=== PATIENT | male | born 1935 | race Caucasian/White ===

== ENCOUNTER 2021-06-04 08:11 | Outpatient (CLI) | payer MEDICARE, BC | END 2021-06-04 08:12 | disposition home or self-care (01) | LOC: CSHWCC 08:11 | PROVIDERS: ATTEND Nurse Practitioner Family | DX: I87.331 Chronic venous hypertension (idiopathic) with ulcer and inflammation of right lower extremity (principal); I87.2 Venous insufficiency (chronic) (peripheral); L97.312 Non-pressure chronic ulcer of right ankle with fat layer exposed; I89.0 Lymphedema, not elsewhere classified; R60.0 Localized edema; I63.9 Cerebral infarction, unspecified; G20 Parkinson's disease; E78.2 Mixed hyperlipidemia; I48.91 Unspecified atrial fibrillation; Z74.01 Bed confinement status | CPT/HCPCS: 99213; G0463 ==

== ENCOUNTER 2021-06-16 09:58 | Outpatient (CLI) | payer MEDICARE, BC | END 2021-06-16 09:59 | disposition home or self-care (01) | LOC: CSHWCC 09:58 | PROVIDERS: ATTEND Nurse Practitioner Family | DX: I87.331 Chronic venous hypertension (idiopathic) with ulcer and inflammation of right lower extremity (principal); I87.2 Venous insufficiency (chronic) (peripheral); L97.312 Non-pressure chronic ulcer of right ankle with fat layer exposed; I89.0 Lymphedema, not elsewhere classified; R60.0 Localized edema; E78.2 Mixed hyperlipidemia; G20 Parkinson's disease; I48.91 Unspecified atrial fibrillation; I63.9 Cerebral infarction, unspecified; R74.01 Elevation of levels of liver transaminase levels; Z74.01 Bed confinement status | CPT/HCPCS: 99213; G0463 ==

== ENCOUNTER 2021-08-25 09:33 | Outpatient (CLI) | payer MEDICARE, BC | END 2021-08-25 09:34 | disposition home or self-care (01) | LOC: CSHWCC 09:33 | PROVIDERS: ATTEND Nurse Practitioner Family | DX: I87.331 Chronic venous hypertension (idiopathic) with ulcer and inflammation of right lower extremity (principal); L97.312 Non-pressure chronic ulcer of right ankle with fat layer exposed; I89.0 Lymphedema, not elsewhere classified; R60.0 Localized edema; G20 Parkinson's disease; I63.9 Cerebral infarction, unspecified; I48.91 Unspecified atrial fibrillation; E78.2 Mixed hyperlipidemia; Z74.01 Bed confinement status | CPT/HCPCS: 29581; 99213; G0463 ==

== ENCOUNTER 2021-09-15 11:07 | Outpatient (CLI) | payer MEDICARE, BC | END 2021-09-15 11:08 | disposition home or self-care (01) | LOC: CSHWCC 11:07 | PROVIDERS: ATTEND Nurse Practitioner Family | DX: I87.331 Chronic venous hypertension (idiopathic) with ulcer and inflammation of right lower extremity (principal); L97.312 Non-pressure chronic ulcer of right ankle with fat layer exposed; R60.0 Localized edema; E78.2 Mixed hyperlipidemia; G20 Parkinson's disease; I48.91 Unspecified atrial fibrillation; I63.9 Cerebral infarction, unspecified; I87.2 Venous insufficiency (chronic) (peripheral); I89.0 Lymphedema, not elsewhere classified; Z74.01 Bed confinement status | CPT/HCPCS: 29581; 99213; G0463 ==

== ENCOUNTER 2021-09-27 09:09 | Outpatient (CLI) | payer MEDICARE, BC | END 2021-09-27 09:10 | disposition home or self-care (01) | LOC: CSHWCC 09:09 | PROVIDERS: ATTEND Nurse Practitioner Family | DX: I87.331 Chronic venous hypertension (idiopathic) with ulcer and inflammation of right lower extremity (principal); I87.2 Venous insufficiency (chronic) (peripheral); L97.312 Non-pressure chronic ulcer of right ankle with fat layer exposed; I89.0 Lymphedema, not elsewhere classified; R60.0 Localized edema; I63.9 Cerebral infarction, unspecified; G20 Parkinson's disease; I48.91 Unspecified atrial fibrillation; E78.2 Mixed hyperlipidemia; Z74.01 Bed confinement status | CPT/HCPCS: 29581; 97607 ==

== ENCOUNTER 2021-10-04 13:25 | Outpatient (CLI) | payer MEDICARE, BC | END 2021-10-04 13:26 | disposition home or self-care (01) | LOC: CSHWCC 13:25 | PROVIDERS: ATTEND Nurse Practitioner Family | DX: I87.331 Chronic venous hypertension (idiopathic) with ulcer and inflammation of right lower extremity (principal); I87.2 Venous insufficiency (chronic) (peripheral); L97.312 Non-pressure chronic ulcer of right ankle with fat layer exposed; I89.0 Lymphedema, not elsewhere classified; R60.0 Localized edema; G20 Parkinson's disease; I48.91 Unspecified atrial fibrillation; I63.9 Cerebral infarction, unspecified; E78.2 Mixed hyperlipidemia; Z74.01 Bed confinement status | CPT/HCPCS: 97607; 99213; G0463 ==

== ENCOUNTER 2021-10-12 14:41 | Outpatient (CLI) | payer MEDICARE, BC | END 2021-10-12 14:42 | disposition home or self-care (01) | LOC: CSHWCC 14:41 | PROVIDERS: ATTEND Nurse Practitioner Family | DX: I87.331 Chronic venous hypertension (idiopathic) with ulcer and inflammation of right lower extremity (principal); E78.2 Mixed hyperlipidemia; G20 Parkinson's disease; I10 Essential (primary) hypertension; I48.91 Unspecified atrial fibrillation; I63.9 Cerebral infarction, unspecified; I87.2 Venous insufficiency (chronic) (peripheral); L97.312 Non-pressure chronic ulcer of right ankle with fat layer exposed; I89.0 Lymphedema, not elsewhere classified; R60.0 Localized edema; Z74.01 Bed confinement status | CPT/HCPCS: 29581; 97139; G0463; 99213 ==

== ENCOUNTER 2021-10-26 14:29 | Outpatient (CLI) | payer MEDICARE, BC | END 2021-10-26 14:30 | disposition home or self-care (01) | LOC: CSHWCC 14:29 | PROVIDERS: ATTEND Nurse Practitioner Family | DX: I87.331 Chronic venous hypertension (idiopathic) with ulcer and inflammation of right lower extremity (principal); I87.2 Venous insufficiency (chronic) (peripheral); L97.312 Non-pressure chronic ulcer of right ankle with fat layer exposed; I89.0 Lymphedema, not elsewhere classified; R60.0 Localized edema; I63.9 Cerebral infarction, unspecified; G20 Parkinson's disease; I48.91 Unspecified atrial fibrillation; E78.2 Mixed hyperlipidemia; Z74.01 Bed confinement status ==

== ENCOUNTER 2022-02-09 12:49 | Outpatient (CLI) | payer MEDICARE, BC | END 2022-02-09 12:50 | disposition home or self-care (01) | LOC: CSHWCC 12:49 | PROVIDERS: ATTEND Nurse Practitioner Family | DX: L97.312 Non-pressure chronic ulcer of right ankle with fat layer exposed (principal) | CPT/HCPCS: 97139; G0463; 99213 ==